=== PATIENT | female | born 1955 | race Caucasian/White ===

== ENCOUNTER → 2017-08-09 | Outpatient (CLI) | payer OTHER | END | disposition home or self-care (01) | LOC: CVU 06:57 | PROVIDERS: ATTEND Internal Medicine Cardiovascular Disease | DX: I08.0 Rheumatic disorders of both mitral and aortic valves (principal); E78.5 Hyperlipidemia, unspecified; E78.00 Pure hypercholesterolemia, unspecified | CPT/HCPCS: 78452; 93017; 93306; 93880; A9502 ==

== ENCOUNTER 2020-12-02 10:58 | Outpatient (CLI) | payer OTHER | END 2020-12-02 23:59 | disposition home or self-care (01) | LOC: CFH 10:58 | PROVIDERS: ATTEND Obstetrics & Gynecology | DX: Z12.31 Encounter for screening mammogram for malignant neoplasm of breast (principal); M85.80 Other specified disorders of bone density and structure, unspecified site | CPT/HCPCS: 77063; 77067; 77080 ==

== ENCOUNTER → 2021-01-13 | Outpatient (CLI) | payer OTHER | END | disposition home or self-care (01) | LOC: CFH 14:59 | PROVIDERS: ATTEND Internal Medicine Cardiovascular Disease | DX: I06.1 Rheumatic aortic insufficiency (principal); R07.9 Chest pain, unspecified | CPT/HCPCS: 93306 ==